=== PATIENT | female | born 1935 | race Caucasian/White ===

== ENCOUNTER → 2020-05-18 13:26 | Outpatient (BNVA) | payer MEDICARE, OTHER, SELFPAY | PROVIDERS: Family Provider Family Medicine; PCP Nurse Practitioner Family; Visit Provider Family Medicine | DX: N94.9 Unspecified condition associated with female genital organs and menstrual cycle (principal); N90.89 Other specified noninflammatory disorders of vulva and perineum; L30.4 Erythema intertrigo | CPT/HCPCS: 81000 ==

== ENCOUNTER → 2020-07-12 13:12 | Outpatient (BNVA) | payer MEDICARE, OTHER, SELFPAY | PROVIDERS: Family Provider Family Medicine; PCP Nurse Practitioner Family; Visit Provider Nurse Practitioner Family | DX: E11.9 Type 2 diabetes mellitus without complications (principal); I10 Essential (primary) hypertension | CPT/HCPCS: 83036 ==

== ENCOUNTER → 2021-01-06 09:29 | Outpatient (BNVA) | payer MEDICARE, OTHER, SELFPAY | PROVIDERS: Family Provider Family Medicine; PCP Nurse Practitioner Family; Visit Provider Nurse Practitioner Family | DX: E11.9 Type 2 diabetes mellitus without complications (principal); I10 Essential (primary) hypertension | CPT/HCPCS: 80053; 80061; 83036; 84443 ==

== ENCOUNTER → 2021-09-04 10:01 | Outpatient (BNVA) | payer MEDICARE, OTHER, SELFPAY | PROVIDERS: Family Provider Family Medicine; PCP Nurse Practitioner Family; Visit Provider Nurse Practitioner Family | DX: R30.0 Dysuria (principal); B37.3 Candidiasis of vulva and vagina; L72.3 Sebaceous cyst; Z68.26 Body mass index [BMI] 26.0-26.9, adult | CPT/HCPCS: 81000 ==

== ENCOUNTER → 2022-03-15 16:39 | Outpatient (BNVA) | payer MEDICARE, OTHER, SELFPAY | PROVIDERS: Family Provider Family Medicine; PCP Nurse Practitioner Family; Visit Provider Nurse Practitioner Family | DX: E11.9 Type 2 diabetes mellitus without complications (principal); I10 Essential (primary) hypertension | CPT/HCPCS: 82043; 83036 ==

== ENCOUNTER 2022-12-20 14:35 | Outpatient (CLI) | payer MEDICARE, OTHER, SELFPAY ==
--- NOTE | 2022-12-20 15:00 | XR_ITS ---
WS: [id number] DEXA (DUAL ENERGY X-RAY ABSORPTIOMETRY) Bone mineral density was performed using a [employer] machine. HISTORY: Z78.0 - Asymptomatic menopausal state COMPARISON: 08/30/2015 Lumbar spine BMD (L1-L4): 1.237 g/cm2 T score: 0.5 Z score: 2.6 Total hip BMD: Left: 0.966 g/cm2. T score: -0.3 Z score: 2.2 Right: 0.915 g/cm2. T score: -0.7 Z score: 1.8 10 year probability of a major osteoporotic fracture is 34.3%. Compared to the prior study from 08/30/2015. Lumbar spine bone mineral density has increased by 6.5%. Bilateral hips bone mineral density has decreased by 8.9%. IMPRESSION: NORMAL BONE MINERAL DENSITY based upon the WHO classification for females. Since the prior study there is been a significant increase in bone mineral density in the lumbar spin e. Significant decrease of bone mineral density in the hips.
== END 2022-12-20 14:36 | disposition home or self-care (01) ==
LOC: RAD 14:35
PROVIDERS: Family Provider Family Medicine; PCP Nurse Practitioner Family; Visit Provider Nurse Practitioner Family
DX: Z13.820 Encounter for screening for osteoporosis (principal); Z78.0 Asymptomatic menopausal state
CPT/HCPCS: 77080

== ENCOUNTER → 2023-01-01 11:27 | Outpatient (BNVA) | payer MEDICARE, OTHER, SELFPAY | PROVIDERS: Family Provider Family Medicine; PCP Nurse Practitioner Family; Visit Provider Nurse Practitioner Family | DX: I10 Essential (primary) hypertension (principal) | CPT/HCPCS: 80053; 80061; 84443; 85025 ==

== ENCOUNTER → 2023-04-25 11:13 | Outpatient (BNVA) | payer MEDICARE, OTHER, SELFPAY | PROVIDERS: Family Provider Family Medicine; PCP Nurse Practitioner Family; Visit Provider Nurse Practitioner Family | DX: E11.9 Type 2 diabetes mellitus without complications (principal) | CPT/HCPCS: 83036 ==